=== PATIENT | male | born 1970 | race Caucasian/White ===

== ENCOUNTER 2023-03-25 08:12 | Day surgery (SDC) | payer OTHER, SELFPAY ==
[2023-03-25 08:43] VITALS: BP 120/85; PULSE 69; RESP 16; TEMP 36.2; O2SAT 97
[2023-03-25] MEDS: LACTATED RINGERS 1,000 ML 42 ML IV (08:52)
--- NOTE | 2023-03-25 09:05 | P.HP_ITS ---
History of Present Illness History of Present Illness Date Patient Seen: 03/25/23 Chief complaint: Colonoscopy Narrative: For screening colonoscopy [facility] Social History Smoking Status: Never smoker Meds Home Medications and Allergies Home Medications Medication Instructions Recorded Confirmed Type atorvastatin 40 mg tablet 40 mg PO DAILY 03/24/23 03/24/23 History Allergies Allergy/AdvReac Type Severity Reaction Status Date / Time No Known Drug Allergies Allergy Verified 03/25/23 08:38 Exam Vital Signs (past 8 hours): - 03/25/23 08:43 Temperature 97.1 F L Pulse Rate 69 Respiratory Rate 16 Blood Pressure 120/85 Pulse Oximetry 97 Oxygen Delivery Method Room Air Oxygen Delivery Method Room Air Narrative Exam Narrative: Oropharynx free of lesions Chest clear to auscultation percussion Cardiac exam reveals no S3 or murmur Assessment & Plan Assessment & Plan narrative: For screening colonoscopy. Risks, benefits, alternatives have been explained.
--- NOTE | 2023-03-25 09:05 | PM.OP.COLON ---
Operative Date/Time/Diagnoses Date of procedure: 03/25/23 Pre-op diagnosis: For screening colonoscopy Procedure & Clinicians Study performed: Colonoscopy Indications: For screening Surgeon: Katherine White Procedure Notes Procedure in detail: After informed consent was obtained the patient was placed in left lateral decubitus position. The video colonoscope was introduced the rectum slowly advanced cecum. On slow withdrawal mucosa was carefully examined. The scope was removed. The patient tolerated procedure well. Blood loss none Complications none Sedation mac Findings 1. Normal colonoscopy to cecum Follow-up colonoscopy should be in 10 years.
[2023-03-25 09:51] VITALS: BP 96/66; PULSE 65; RESP 20; TEMP 36.4; O2SAT 95
[2023-03-25 09:56] VITALS: BP 97/67; PULSE 61; RESP 13; O2SAT 96
[2023-03-25 10:01] VITALS: BP 100/70; PULSE 57; RESP 17; O2SAT 97
[2023-03-25 10:06] VITALS: BP 100/71; PULSE 54; RESP 16; O2SAT 98
[2023-03-25 10:11] VITALS: BP 113/86; PULSE 70; RESP 10; TEMP 36.4; O2SAT 99
== END 2023-03-25 10:21 | disposition home or self-care (01) ==
PROVIDERS: PCP Nurse Practitioner Family; Referring Provider Internal Medicine Gastroenterology; Visit Provider Internal Medicine Gastroenterology
PROC: 0DJD8ZZ Inspection of Lower Intestinal Tract, Via Natural or Artificial Opening Endoscopic (ICD-10-PCS; CPT 45378; principal; 2023-03-25 09:30)
DX: Z12.11 Encounter for screening for malignant neoplasm of colon (principal)
CPT/HCPCS: 45378; J2704